=== PATIENT | male | born 1985 | race Caucasian/White ===

== ENCOUNTER 2023-12-17 11:10 | Emergency (ER) | payer MEDICAID ==
[~2023-12-17] VITALS: Ht 175.3 cm; Wt 78.0 kg
[2023-12-17 11:15] VITALS: BP 122/95; PULSE 94; RESP 16; TEMP 98.4; O2SAT 100
[2023-12-17] MEDS: FLUORESCEIN SODIUM 1MG/STRIP BOTHEYE ONE (15:25)
[2023-12-17] MEDS: TETRACAINE 0.5% OPHTH DROPS 4ML BOTHEYE ONE (15:25)
[2023-12-17] MEDS: TETRACAINE 0.5% OPHTH DROPS 4ML BOTHEYE SCH (15:39)
[2023-12-17] MEDS: FLUORESCEIN SODIUM 1MG/STRIP BOTHEYE SCH (15:39)
[2023-12-17] MEDS ORDERED: GLYC30DR4 EACHEYE (16:59)
== END 2023-12-17 17:36 | disposition home or self-care (01) ==
LOC: ER 11:10
DX: H16.213 Exposure keratoconjunctivitis, bilateral (principal)
CPT/HCPCS: 99283